=== PATIENT | female | born 1940 | race African-American/Black ===

== ENCOUNTER → 2023-06-27 | Outpatient (REF) | payer MEDICARE, OTHER ==
[2023-06-27 18:39] LABS: MAU/CREAT RATIO 3.6 MCG/MG (0.0-30.0)
[2023-06-27 19:02] LABS: HEMOGLOBIN A1c 6.8 % (4.0-6.0)
[2023-06-27 19:05] LABS: CALCIUM LEVEL 9.3 MG/DL (8.3-10.6); CHOLESTEROL RISK RATIO 2.91 (<5); CREATININE FOR GFR 1.45 MG/DL (0.55-1.30); GLOMERULAR FILTRATION RATE 36.8 (>32); HDL CHOLESTEROL 55.6 MG/DL (>40); LDL CHOLESTEROL 85.2 MG/DL (<100); NON-HDL-C 106.4 MG/DL; POTASSIUM SERUM 4.7 MMOL/L (3.5-5.1)
[2023-06-27 19:06] LABS: PERCENT SATURATION 23.4 % (13.2-45.0)
== END ==
LOC: M LAB REF 16:31
PROVIDERS: ATTEND Pediatrics
DX: E78.5 Hyperlipidemia, unspecified (principal); E11.9 Type 2 diabetes mellitus without complications; D50.9 Iron deficiency anemia, unspecified

== ENCOUNTER → 2023-07-07 | Outpatient (CLI) | payer MEDICARE, OTHER | LOC: M PLAIMG 13:57 | PROVIDERS: ATTEND Pediatrics | DX: I35.0 Nonrheumatic aortic (valve) stenosis (principal) ==

== ENCOUNTER → 2023-09-24 | Outpatient (REF) | payer MEDICARE, OTHER ==
[2023-09-24 19:13] LABS: CALCIUM LEVEL 9.2 MG/DL (8.3-10.6); CREATININE FOR GFR 1.25 MG/DL (0.55-1.30); GLOMERULAR FILTRATION RATE 52.9 (>32)
== END ==
LOC: M LAB REF 16:24
PROVIDERS: ATTEND Pediatrics
DX: R60.0 Localized edema (principal); N18.31 Chronic kidney disease, stage 3a; I35.0 Nonrheumatic aortic (valve) stenosis; I31.39 Other pericardial effusion (noninflammatory)

== ENCOUNTER → 2023-10-07 | Outpatient (CLI) | payer MEDICARE, OTHER | LOC: M PLAIMG 09:28 | PROVIDERS: ATTEND Pediatrics | DX: I31.39 Other pericardial effusion (noninflammatory) (principal); I35.0 Nonrheumatic aortic (valve) stenosis ==